=== PATIENT | female | born 1950 | race Caucasian/White ===

== ENCOUNTER → 2022-05-31 12:42 | Outpatient (CLI) | payer OTHER, SELFPAY ==
[2022-05-31 13:55] LABS: COVID19 -Nasal RAPID POSITIVE (Negative)
== END ==
PROVIDERS: PCP Nurse Practitioner; Referring Provider Orthopaedic Surgery; Visit Provider Orthopaedic Surgery
DX: U07.1 COVID-19 (principal); Z20.822 Contact with and (suspected) exposure to COVID-19
CPT/HCPCS: 87635; C9803

== ENCOUNTER → 2022-08-08 11:50 | Outpatient (CLI) | payer OTHER, SELFPAY ==
[2022-08-08 12:34] LABS: COVID19 -Nasal RAPID Negative (Negative)
== END ==
PROVIDERS: Referring Provider Orthopaedic Surgery; Visit Provider Orthopaedic Surgery
DX: Z20.822 Contact with and (suspected) exposure to COVID-19 (principal)
CPT/HCPCS: 87635; C9803

== ENCOUNTER 2022-08-10 07:28 | Day surgery (SDC) | payer OTHER, SELFPAY ==
[2022-08-05 12:13] VITALS: BMI 30.4
[2022-08-10] VITALS (13 sets, daily range): BP systolic 94–144; BP diastolic 54–92; PULSE 62–82; RESP 10–18; TEMP 35.7–36.8; O2SAT 90–100; BMI 30.9
--- NOTE | 2022-08-10 06:00 | DI.RAD.S_ITS ---
PROCEDURE: XR KNEE RT 1TO2V INDICATIONS: prosthesis placement TECHNIQUE: 2 view(s) of the knee acquired. COMPARISON: None. FINDINGS: Bones: Patient is status post knee joint arthroplasty. Hardware components are in expected positions. Visualized bony structures are intact. Soft tissues: Overlying postoperative changes are noted. IMPRESSION: Postsurgical changes from right knee arthroplasty. No definite unexpected findings. Dictated by: Santiago Fernandez M.D. on 08/10/2022 at 11:40 Approved by: Santiago Fernandez M.D. on 08/10/2022 at 11:42
[2022-08-10] MEDS: ACETAMINOPHEN 325 MG TABLET 975 MG PO (08:12)
[2022-08-10] MEDS: CELECOXIB 200 MG CAPSULE PO (08:14)
[2022-08-10] MEDS: PREGABALIN 75 MG CAPSULE PO (08:15)
[2022-08-10] MEDS: LACTATED RINGERS 1,000 ML 42 ML IV ×2 (08:18→10:08)
--- NOTE | 2022-08-10 08:20 | PM.PREOP ---
Pre-operative Note COVID-19 COVID-19 status: Negative Result date/Date tested (Pos, Neg/Pending): 08/08/22 Interval Note History & Physical reviewed/Exam performed by Physician: Yes Changes to H&P: No
[2022-08-10] MEDS: CEFAZOLIN 2 GM/100 ML PREMIX 100 ML IV ×2 (09:05→16:06)
[2022-08-10] MEDS: TRANEXAMIC ACID 1,000 MG VIAL 1000 MG INJ ×2 (09:15→10:25)
--- NOTE | 2022-08-10 10:02 | SUR.OPER ---
Supine on padded OR bed. Pillow under head, arms secured on padded armboards <90 degree abduction. Safety belt across torso. Non-operative leg secured with tape over blanket over lower leg. Operative leg secured in DeMayo positioner. Foam padded brace at thigh of operative leg.
[2022-08-10] MEDS: BUPIVACAINE LIPOSOME 266 MG/20 ML VIAL INJ (10:06)
[2022-08-10] MEDS: BUPIVACAINE 0.25% (PF) 60 ML, EPINEPHrine 0.3 MG INJ (10:06)
[2022-08-10] MEDS: MORPHINE 4 MG/ML INJ INJ (10:07)
--- NOTE | 2022-08-10 10:40 | P.OP_ITS ---
Operative Date/Time/Diagnoses Date of procedure: 08/10/22 Time of procedure: 10:40 Pre-op diagnosis: Right knee osteoarthritis Post-op diagnosis: same Procedure & Clinicians Procedure: Right total knee replacement Same procedure as scheduled: Yes Indications: The patient has had progressively worsening right knee pain with radiographic changes consistent with arthritis. Non-operative management has failed and the patient has requested total knee replacement. The risks, benefits and alternatives to surgery were discussed with the patient prior to proceeding. Risks discussed included, but were not limited to, failure to relieve pain, stiffness, infection, nerve damage, deep venous thrombosis, pulmonary embolism, stroke, coma, heart attack, permanent paralysis and , as well as the potential need for eventual revision of the prosthetic. Surgeon: Maikel Case Braze Operator: Rachel Douglass Click Yes if Unassisted: No Anesthesia Type: General, Spinal and Local Operative Notes Findings: Severe medial and moderate patellofemoral osteoarthritis. Closure Type: primary Specimen(s): none sent Prosthetic devices, grafts, tissues, transplants, or devices: Implants used in this procedure were manufactured by the [employer] and included the BCS II Journey total knee replacement with a size 4 right Oxinium femoral component, a size 4 right non porous tibial base plate, a 9 mm cross-linked polyethylene tibial insert and a 32 mm oval Elizabeth II yusuf la. Applied: implant(s) Estimated Blood Loss (mL): 25 Blood products transfused: none Tourniquet time (min): 47 Procedure in detail: The patient was seen in the pre-operative area, where the patient identified the right knee as the operative site and this was marked with my initials. The patient received pre-operative antibiotics, and was taken to the operating room and placed on the operative table in the supine position. After satisfactory anesthesia, a timekeeper supervisor out was performed. The right leg was encircled with a tourniquet about the proximal thigh, and the leg was prepared from the toes to the tourniquet with ChloroPrep in the usual fashion and draped through sterile drapes. The leg was elevated and exsanguinated with Eschmark bandage and the tourniquet inflated to 250 mmHg pressure. The knee was approached through an approximately 18 cm incision centered over the patella and carried into the knee through a medial parapatellar arthrotomy. The anterior osteophytes and soft tissues were removed. The rotational landmarks of [place]'s line and the transepicondylar axis were marked on the femur with electrocautery, and intramedullary guide holes for the femur and tibia were created. The distal femoral cut was made in 6 degrees of valgus using the intramedullary guide at the primary cut setting. The proximal tibial cut was then made using the intramedullary guide, taking 9 mm of bone off the less involved side. The extension gap was checked and the rotation of the femoral component confirmed with the gap balancing system. The anterior, posterior and chamfer cuts were then made. The posterior osteophytes and soft tissues were then removed. The posterior capsule was injected with part of a mixture of 60 ml 0.25% Marcaine mixed with 20 ml Exparel and 4 mg of morphine for post-operative pain control. The remainder of this mixture was injected into the capsule and subcutaneous tissues during cement curing. The tibia was prepared with the rotation set by an extra medullary guide. Trial tibial and femoral components were then placed and the intercondylar notch cut through the femoral trial. Range of motion was 0-140 degrees, with good stability throughout the range. The patella was then cut to accommodate the patellar prosthetic. There was no need for a lateral release. The trials were then removed, and the femoral hole plugged with a bone plug. The bone was prepared with pulsatile lavage, and dried with a sponge. Cement was applied and the final prosthetics placed. Excess cement was removed during and after cement curing. After confirming there was no extruded cement posteriorly, the final tibial insert was placed. The knee was copiously irrigated and the tourniquet deflated. Hemostasis was obtained. The capsule was closed with interrupted # 2 polyester suture. The subcutaneous layer was closed with 3-0 Vicryl, and the skin with a running 3-0 V-Lock suture and Dermabond. An Aquacel Ag dressing was applied and the patient was taken to recovery having tolerated the procedure well. The services of Ms. Douglass were necessary to provide exposure, positioning and retraction to protect vital structures during the total knee replacement. The procedure could not have been performed expediently and safely without the presence of a skilled hand frame surgical elastic knitter. Complications: none Post-operative Condition: stable Disposition: PACU Plan for aftercare: The patient will be maintained on a standard total knee replacement protocol with weight bearing as tolerated. The patient will receive aspirin and sequential compression devices for DVT prophylaxis. The patient will be discharged home when safe for the home environment.
--- NOTE | 2022-08-10 10:48 | SUR.PHASEI ---
Received to PACU after spinal/general anesthesia. Airway patent, self maintained. Report from LOIS Sandhu and Dr Cordero.
--- NOTE | 2022-08-10 11:18 | SUR.PHASEI ---
Required O2 for short period. O2 sats had dropped to 90%. Currently 94% on room air. Report called to LOIS Reis. Transferred to room 202 By LOIS Rodriguez and LOIS Felix with CPAP, belongings bag, earring to left ear.
--- NOTE | 2022-08-10 12:03 | PC.NURSE ---
Day shift: Pt on unit from PACU at approx 1130. She is A&Ox4. Denies any pain. CMS intact. SARAH and Aquacel CDI. Pt's Sister in room for support. Oriented to room and call light. VS and BP 100/60. Agrees to not get OOB w/o help from staff.
[2022-08-10] MEDS: LACTATED RINGERS 1,000 ML 100 ML IV (12:19)
[2022-08-10] MEDS: IBUPROFEN 400 MG TABLET PO ×3 (12:24→21:03)
[2022-08-10] MEDS: ACETAMINOPHEN 325 MG TABLET 650 MG PO ×2 (12:25→17:21)
[2022-08-10] MEDS: HYDROMORPHONE 2 MG TABLET PO ×3 (12:38→19:17)
[2022-08-10] MEDS: HYDROMORPHONE 0.5 MG INJ 0.2 MG IV (13:46)
--- NOTE | 2022-08-10 14:16 | CM.DANOTE ---
Patient is a 71 yo male who was admitted on 08/10/22 today for RTKA. Pt has [employer] ADV for insurance and his PCP is Dr. Deneen Chavez. EMR was reviewed. Per Vargas DELACRUZ, pt with RTKA that was postponed as pt contracted COVID but now admitted for planned surgery and was off the floor this morning in the OR. PT orders placed and pending. SW met briefly with pt bedside right after he arrived to the floor and explained role and pt confirms he lives in [facility] alone and is independent with ADL's at baseline and denies any hx of HH or SNF that he can remember. Pt states his plan is for sister to transport pt to her home in [place] at d/c and assist and he plans to initiate outpt PT in [place]. Pt does not anticipate any needs but aware that PT will need to assess to determine if pt safe for home with sister assist. Plan: SW to follow closely for PT eval and recommendations towards confirming safe plan of d/c to sister's house and any further identified needs. MARY Prajapati Discharge Planning/Care Management Advanced directive, confirm from FAMILY Start: 08/10/22 13:23 Freq: Q24H Status: Active Protocol: Document 08/10/22 13:26 YAD (Rec: 08/10/22 13:26 YAD [id number]) Advance Directive, confirm on record Time 13:26 Person contacted Pt Copy received No CM Discharge Assessment Start: 08/10/22 14:14 Freq: Status: Active Protocol: Document 08/10/22 14:14 BF (Rec: 08/10/22 14:16 BF [id number]) Discharge Planning Assessment Assigned Piano Builder MARY Crabtree DPOA/Assigned Designee Name sister Abi Advance Directives? Yes Advance Directives on File No History Provided By Patient,Family Member,Medical Record Has Patient been admitted in last 30 No days? Prior Living Arrangements Apartment/Condo Household Members none Type of transporation used prior to Drives own vehicle admit Independent with ADL's Yes Is patient alert and oriented? Yes Needs Assistance With Home Chores / Shopping Caregiver for Another No Community Services used prior to Physical Therapy admission: Patient/Family Preference Home with Home Health,OP PT Therapy Comment HH vs outpt pending PT eval and recommendations Barriers to Discharge No Discharge Plan Home with Home Health Transportation Arrangement sister is bedside and to transport if safe for home Additional Comment Pending PT eval and recommendations Review Status In Process Please Provide Date Initial DC 08/10/22 Assessment Was Performed Next Review Type Continued Stay Review Pre-Anesthesia Assessment Start: 05/19/22 09:34 Freq: Status: Active Protocol: Document 08/05/22 12:13 CAB (Rec: 05/19/22 10:31 CAB [id number]) Pre-Anesthesia Assessment Preferred Name Shaun Patient Information Reviewed Via Phone Assessment Assessment Completed With Patient Comment Outsdie labs/ECG scanned, COVID screen @ 08/08/22 Primary Care Provider Deneen Chavez Seen Specialist in Last 12 Months Yes Specialist Seen Orthopedist Primary Language Indonesian Ferryboat Pilot Required No Height 162.56 cm Weight 80.286 kg Body Mass Index (BMI) 30.4 Hearing Ability Normal Visual Assist Glasses Dentition Type Teeth, Natural Present Barriers to Learning None Other Aids Yes: CPAP Hx Anesthesia Reactions No Hx Family Anesthesia Reaction No Hx Malignant Hyperthermia No Hx Blood Transfusions No Anesthesia Review Requested No alcohol intake former Smoking Status Former smoker how long ago did patient quit smoking Quit age 49 Pain Present Pain Reported Musculoskeletal Symptoms Abnormal Gait,Difficulty Walking,Joint Pain,Neck Pain History of Falling (Recent or History of No ) Patient is completely paralyzed or No completely immobile Mental Status Oriented to own ability Is patient on oxygen? No Does patient have AGUERO/SOB No Hx Sleep Apnea Yes CPAP/BIPAP use prescribed and used routinely Will Bring CPAP/BIPAP DOS Yes Currently Taking a Beta Dinah No Hx Chest Pain No Hx SOB No Hx Syncope or Dizziness No Anti-Coagulant Therapy No Has a Recreational Leader No Cardiac Testing No Hx Pacemaker/ICD No Pacemaker Rep Required? No Cardiac Clearance Received Not Applicable Diet Type At Home Regular Dysphagia No Urinary Catheter Present No Hx Urinary Self Catheterization No Diabetes No Patient No Lactating No Hx Drug Resistant Organism No Presence of External or Internal Medical Yes: CPAP Devices Have you had any close contact with Yes: Pt had Covid 1st week of someone diagnosed with COVID-19? March Are you experiencing any of these No symptoms symptoms? Received a COVID vaccine? No Comment 2nd COVID infection 05/31/22 Marital Status Lives With none Current Living Arrangements Apartment/Condo Support System Sibling(s) Does the Patient Have Assistance After Yes: Pt will go to sister's [place] for care Patient Discharge Plan Description Other Comment Pt advised overnight length of stay per surgeon Feels Safe in Current Environment Yes Been Physically Hurt or Threatened By a No Person in Current Environment Do you have thoughts of harming yourself None or others? Are you currently considering suicide? No Do you have a plan to hurt yourself or No Plan others? Do You Have Any Spiritual Beliefs That No May Affect Your HC Choices? Do You Have Any Cultural Practices That No May Affect Your HC Choices? Comment Voodoo Who Can We Speak to About Patient's Care Family, friends Identifying Code for Release of Patient Declines to issue Information Health Care Proxy/Next of Kin Abi (sister) Health Care Proxy Emergency Contact Name Christen Osborn (friend) Emergency Contact Advance Directives? Yes Advance Directives on File No Requested Patient Bring Advanced Yes Directives DOS Power of Bariatric Physician Yes Power of Bariatric Physician Name Abi (sister) Power of Bariatric Physician PAC Instructions Bring CPAP/BIPAP,Do not shave/ clip surgical site,Durable medical equipment,Medications to take/avoid,Nasal antibiotic ,No ETOH/petroleum product on skin DOS,NPO,Post-op transportation,Sensory aids, Sturdy shoes/comfortable clothes,Do not bring valuables and remove jewelry
--- NOTE | 2022-08-10 17:00 | PT.IIE ---
Current Diagnoses Unilateral primary osteoarthritis, right knee (08/10/22) Surgery Performed Operation Date: 08/10/22 08:45 Actual Procedures p Total Knee Arthroplasty(Right) - Maikel Case MD Surgical History (Last Reviewed 08/10/22 @ 08:06 by Vinod Garcia, LOIS) Hx of foot surgery Hx of shoulder surgery Medical History (Last Updated 06/23/22 @ 13:55 by Peg Mustafa RN) Chronic neck pain COVID-19 virus infection (~03/2022) COVID-19 virus infection (05/31/22) Depression Elevated cholesterol Glaucoma Macular degeneration SHAUN (obstructive sleep apnea) Osteoarthritis Physical Therapy Inpatient Evaluation/Re-Eval M1 PT/OT-IP Prior Functional Status Start: 08/10/22 17:05 Freq: NEEDED Status: Active Protocol: Document 08/10/22 17:00 DLM (Rec: 08/10/22 17:19 DLM [id number]) Medical Review Prior Functional Status Medical History Reviewed Yes Diet/Fluid Consistency Regular Communication WFL, wears glasses Mobility and Gait Independent without device, her distances were limited before surgery due to her knee pain Activities of Daily Living and IADL's Independent, drives Social History Household Members none Living Arrangements Apartment/Condo Number of Floors (Floors) Two Floors Number of Stairs To Enter/Railing? 2 with rail Home Equipment Front Wheel Walker,Raised Toilet Seat Without Armrests Additional Social History Comment She will be staying at her Sister's house which is one story and has 1-2 steps to enter. She reports in the bathroom the toilet is close to a counter that she can use to assist her. M2 PT-IP Current Condition Start: 08/10/22 17:05 Freq: NEEDED Status: Active Protocol: Document 08/10/22 17:00 DLM (Rec: 08/10/22 17:19 DLM [id number]) Physical Therapy Current Condition Current Condition Evaluation Date 08/10/22 Treatment Diagnosis right TKA, impaired gait Onset Date 08/10/22 M3 PT-IP Subjective Start: 08/10/22 17:05 Freq: NEEDED Status: Active Protocol: Document 08/10/22 17:00 DLM (Rec: 08/10/22 17:19 DLM [id number]) Subjective Physical Therapy Visit Type Type Initial Evaluation Visit Start Time 16:20 Visit Stop Time 17:00 Total Visit Minutes 40 Number of TEXTILE FINISHER Visits 0 Physical Therapy Visit Comments Patient Comments she reports her knee is sore today Patient Goals Discharge home with her Sister to help Therapy Pain Assessment Pain When Pain Assessed After Treatment Pain Present Pain Present Pain Reported Location Right Knee Intensity 6 Scale Used Numeric (0 - 10) Description Aching,Tender,With Movement Pain Behaviors Wincing Pain Management Techniques Apply Cold,Elevation,Re- positioning,Timing of Activity with Medications M4 PT-IP Mobility and Gait Start: 08/10/22 17:05 Freq: NEEDED Status: Active Protocol: Document 08/10/22 17:00 DLM (Rec: 08/10/22 17:19 DLM [id number]) PT-Bed Mobility Assessment Supine to Sit Supine to Sit Standby Assistance Scooting Scooting to Edge of Bed Independent PT-Transfer Assessment Sit to and From Stand Sit to and from Stand Standby Assistance,Use of Upper Extremities Equipment Transfer Assistive Device Gait Belt,Front Wheeled Walker Transfers Transfer Destination Bed,Chair,Bedside Commode Transfer Technique Stand Step Pivot Transfer Ability Level of Assist Standby Assistance,Use of Upper Extremities Comments Mobility Comments Pt got up to the bedside commode to urinate. She stayed up in the recliner at the end of this visit for dinner. Her feet are elevated in the recliner and ice pack on right knee. Gait Assessment Gait Gait Assistance Required: Standby Assistance Distance (Feet) 25 Assistive Devices Assistive Device Gait Belt,Front Wheeled Walker Gait Deviations General Gait Pattern Antalgic Factors Limiting Gait Function Factors Limiting Gait Function Decreased Activity Tolerance, Decreased Strength,Limited Range of Motion,Pain,Poor Balance Comments Gait Comments Pt able to ambulate in the room with the FWW, good use of UE support on the FWW to manage right knee pain PT-Balance Assessment Sitting Balance and Reactions Static Sitting Balance Ability Normal Dynamic Sitting Balance Ability Normal Standing Balance and Reactions Static Standing Balance Ability Good Dynamic Standing Balance Ability Good Device Used FWW M5 PT-IP Objective Assessments Start: 08/10/22 17:05 Freq: NEEDED Status: Active Protocol: Document 08/10/22 17:00 DLM (Rec: 08/10/22 17:19 DLM [id number]) Orientation Orientation/Cognition Level of Alertness Alert Orientation Name,Age,Birthday,Month,Date, Year,Day of Week,Place, Situation Language Function Ability No Deficits Noted Safety Awareness Understands Safety Issues Memory Description No Deficits Noted Comments flat affect but she can joke and laugh Gross Range of Motion Upper Extremity ROM Assessment Within Functional Limits Lower Extremity ROM Assessment Right Impaired Impairments knee AROM 0-90 degrees post-op Strength Upper Extremity Strength Assessment Within Functional Limits Lower Extremity Strength Assessment Right Impaired Hip able to do SLR with pain Knee extension 3-/5 with pain Ankle DF 5/5 Comments Strength Comments right knee pain with all activity Coordination Assessment Gross Coordination Gross Coordination WNL Assessment Coordination Comments mild tremors today Sensation Assessment Sensation Gross Sensation WNL Muscle Tone Muscle Tone WNL Yes M6 PT-IP Treatment Start: 08/10/22 17:05 Freq: NEEDED Status: Active Protocol: Document 08/10/22 17:00 DLM (Rec: 08/10/22 17:19 DL [id number]) Physical Therapy Treatment Exercises Exercises Ankle Pumps,Quad Sets,Heel Slides,Straight Leg Raises, Short Arc Quads,Passive Knee Extension Hang,Seated Knee Flexion/Extension Education Education Provided Weight Bearing Status,Post-Op Packet,Safety Other Treatments Other Treatment Performed pt completed 5 reps of each exercise and reviewed written HEP with her M7 PT-IP Assessment and Plan Start: 08/10/22 17:05 Freq: NEEDED Status: Active Protocol: Document 08/10/22 17:00 DLM (Rec: 08/10/22 17:19 DLM [id number]) PT Summary Assessment and Plan Potential Rehabilitation Potential Excellent Status of Condition at Evaluation Evolving Summary Impairments Pain,ROM,Strength,Balance,Bed Mobility,Transfers,Gait, Activity Tolerance Assessment Summary Shaun is alert and resting in bed. She was able to get up to use the bedside commode and ambulate in the room with the FWW. Pt left sitting up in the recliner for dinner. She tolerated activity well but has more pain with activity and less at rest. Anticipate she will be ready to discharge home if she continues to progress well tomorrow. No nausea and no dizziness this visit. Will plan to see her for one more visit in the morning to advance her distance of gait and stair training. Pt plans to stay with her Sister at discharge. Goals Bed Mobility Goal Independent Transfer Goal Independent,Front Wheeled Walker Gait Goal Independent,Front Wheel Walker Gait Distance 150 feet Other Goals up/down 1-2 steps with FWW or cane and rail, SBA Days to Meet Goals 2 Frequency of Treatment Frequency Of Treatment Twice a Day Treatment Plan Physical Therapy Treatment Plan Bed Mobility Training,Transfer Training,Gait Training, Therapeutic Exercise,Balance Retraining,Post Op Education, Discharge Planning,Hot or Cold Pack,Neuromuscular Re-ed Other Recommendations and Next Treatment stair training before Focus discharge home Precautions Other Precautions fall risk post-op Weight Bearing Status Weight Bearing Status Weight Bear as Tolerated Recommendations To Nursing Amount of Assist Needed Standby Assistance Discharge Recommendations PT Discharge Recommendations Home with Assistance, Outpatient PT Other Discharge Recommendations she plans to stay with her Sister at discharge, she has physical therapy set up Transportation Needs at Discharge Private Vehicle
[2022-08-10] MEDS: DOCUSATE 100 MG CAPSULE PO (21:03)
[2022-08-10] MEDS: ASPIRIN EC 81 MG TABLET PO (21:03)
[2022-08-10] MEDS: QUETIAPINE 100 MG TABLET 400 MG PO (21:04)
[2022-08-10] MEDS: TEMAZEPAM 15 MG CAPSULE PO (21:05)
[2022-08-11] MEDS: HYDROMORPHONE 2 MG TABLET PO ×3 (01:19→11:53)
[2022-08-11] MEDS: ACETAMINOPHEN 325 MG TABLET 650 MG PO ×3 (01:19→11:54)
[2022-08-11] MEDS: CEFAZOLIN 2 GM/100 ML PREMIX 100 ML IV (01:22)
[2022-08-11] MEDS: IBUPROFEN 400 MG TABLET PO ×4 (01:22→11:54)
[2022-08-11 04:45] VITALS: BP 110/61; PULSE 59; RESP 18; TEMP 36.1; O2SAT 93
[2022-08-11 06:37] LABS: Hematocrit 35.2 % (36-46); Hemoglobin 11.4 g/dL (12.0-16.0)
--- NOTE | 2022-08-11 08:07 | P.DS_ITS ---
History of Present Illness History of Present Illness Date Patient Seen: 08/11/22 Time Patient Seen: 08:08 Chief complaint: Right TKA *OPB* Narrative: The history and physical is contained in the chart previously completed note. Please refer to that note for this information. Discharge Providers Provider Date of admission: August 10, 2022 Discharge Date: 08/11/22 Primary care physician: Deneen Chavez MD Consults: 08/10/22 11:23 Consult to Discharge Planning Routine Comment: Consult to Physical Therapy Evaluate & Treat Comment: Physician Instructions: postop TKA protocol Discharge provider: Maikel Caes MD Summary Hospital Course Discharge Diagnosis: 1. Right knee osteoarthritis 2. Post hemorrhagic anemia Hospital Course: The patient was admitted to the hospital and taken directly to the operating r oom on August 10, 2022 where she underwent a right total knee replacement without complications. On postoperative day 1 she complained of pain control issues since 1st waking up however the pain has been brought under control. She has a mild post hemorrhagic anemia which we anticipate will improve with dietary measures. Status at Discharge Cognitive/behavioral status at discharge: at baseline, oriented Functional status at discharge: uses cane/walker Overall status at discharge: patient is progressing back to baseline Time Spent with Patient Time spent: Less than 30 minutes Exam Vital Signs (past 8 hours): - 08/11/22 04:45 Temperature 97.0 F L Pulse Rate 59 L Respiratory Rate 18 Blood Pressure 110/61 Pulse Oximetry 93 Oxygen Flow Rate 0 Oxygen Delivery Method Room Air Oxygen Flow Rate 0 Narrative Exam Narrative: Right knee wound is dressed with no drainage on the bandage. Calf is soft. Light touch and motion are intact in the right lower extremity. Objective Labs Result Diagrams: 08/11/22 06:23 Labs: Laboratory Results - last 24 hr 08/11/22 06:23 Hgb 11.4 L Hct 35.2 L PFSH Medical History (Updated 06/23/22 @ 13:55 by Peg Mustafa RN) Chronic neck pain COVID-19 virus infection (~03/2022) COVID-19 virus infection (05/31/22) Depression Elevated cholesterol Glaucoma Macular degeneration SHAUN (obstructive sleep apnea) Osteoarthritis Surgical History Hx of foot surgery Hx of shoulder surgery Social History household members: none Smoking Status: Former smoker alcohol intake: former Discharge Assessment & Plan Assessment and Plan Assessment: Stable postoperative day 1 status post right total knee replacement with mild post hemorrhagic anemia. Plan of Treatment: We will mobilize her with physical therapy this morning. At the time of this dictation it is anticipated she will be able to go home later this morning. She will be going to live with her sister for additional assistance. Prescription for pain relievers been called into her pharmacy. She is been instructed in the use of anti-inflammatories and Tylenol for additional pain relief in the use of low-dose aspirin for DVT prophylaxis. Follow-up will be in my office in 10-14 days. Discharge Plan Discharge Plan Patient Disposition: Home Discharge orders & Medications Discharge Orders: Discharge (Order); Ordered 08/11/22 Ordered By: Maikel Case Prescriptions: New acetaminophen 325 mg Tablet 650 mg PO Q6HR Qty: 250 0RF aspirin 81 mg Tablet,Delayed Release (Dr/Ec) 81 mg PO BID Qty: 84 0RF ibuprofen 400 mg Tablet 400 mg PO Q4HR Qty: 250 0RF oxycodone 5 mg Tablet 5 mg PO Q4H PRN (Reason: Pain, Moderate (4-6)) Qty: 40 0RF Continued clonazepam 0.5 mg Tablet 0.5 mg PO DAILY temazepam 15 mg Capsule 15 mg PO BEDTIME quetiapine 400 mg Tablet Extended Release 24 Hr 400 mg PO BEDTIME desvenlafaxine succinate [Pristiq] 50 mg Tablet Extended Release 24 Hr 75 mg PO DAILY Follow up/Referrals: Maikel Case MD [Physician] - As previously scheduled Deneen Chavez MD [Primary Care Provider] - Diet/Activity/Treatments Diet: Diet as Tolerated and Regular Activity: You may bear weight as tolerated on your right knee. Cold/Heat Therapy: You may apply ice to the right knee for 15 minutes every hour as needed for pain control. Skin/Wound/Dressing Care Report to your healthcare provider any signs of infection, such as:: chills, fever, night sweats, increased pain, unusual drainage and unusual redness Dressing: You may remove the Amol wrap 3 days after surgery and shower normally with the deeper dressing in place. Leave the deeper dressing in place until your postoperative follow-up. If the central strip of the dressing becomes saturated with either water or blood, please call the office to have it eval uated. Visit Report/Discharge Packet Instructions: DI for Knee Replacement Stand Alone Forms: Surgery Discharge Discharge Data Primary Care Provider: Deneen Chavez Attending Provider: Maikel Case
[2022-08-11 08:18] VITALS: BP 130/75; PULSE 79; RESP 18; TEMP 37.1; O2SAT 97
[2022-08-11] MEDS: DESVENLAFAXINE SUCCINATE 50 MG 75 EACH PO (08:45)
[2022-08-11] MEDS: clonazePAM 0.5 MG TABLET PO (08:47)
[2022-08-11] MEDS: DOCUSATE 100 MG CAPSULE PO (08:47)
[2022-08-11] MEDS: ASPIRIN EC 81 MG TABLET PO (08:47)
--- NOTE | 2022-08-11 10:01 | PT.IPTN ---
Current Diagnoses Unilateral primary osteoarthritis, right knee (08/10/22) Surgery Performed Operation Date: 08/10/22 08:45 Actual Procedures p Total Knee Arthroplasty(Right) - Maikel Case MD Physical Therapy Treatment Note M2 PT-IP Current Condition Start: 08/10/22 17:05 Freq: NEEDED Status: Active Protocol: Document 08/10/22 17:00 DLM (Rec: 08/10/22 17:19 DLM [id number]) Physical Therapy Current Condition Current Condition Evaluation Date 08/10/22 Treatment Diagnosis right TKA, impaired gait Onset Date 08/10/22 M3 PT-IP Subjective Start: 08/10/22 17:05 Freq: NEEDED Status: Active Protocol: Document 08/11/22 10:01 DLM (Rec: 08/11/22 10:22 DLM [id number]) Subjective Physical Therapy Visit Type Type Treatment Note Visit Start Time 09:35 Visit Stop Time 10:01 Total Visit Minutes 26 Number of TRUMPET TEACHER Visits 0 Physical Therapy Visit Comments Patient Comments She feels she is safe to go home today Patient Goals Discharge home with her Sister to help Therapy Pain Assessment Pain When Pain Assessed After Treatment Pain Present Pain Present Pain Reported Location Right Knee Intensity 5 Scale Used Numeric (0 - 10) Description Aching,Tender,With Movement Pain Management Techniques Apply Cold,Elevation,Re- positioning,Timing of Activity with Medications M4 PT-IP Mobility and Gait Start: 08/10/22 17:05 Freq: NEEDED Status: Active Protocol: Document 08/11/22 10:01 DLM (Rec: 08/11/22 10:22 DLM [id number]) PT-Bed Mobility Assessment Supine to Sit Supine to Sit Independent Sit to Supine Sit to Supine Independent Scooting Scooting to Edge of Bed Independent PT-Transfer Assessment Sit to and From Stand Sit to and from Stand Independent,Use of Upper Extremities Equipment Transfer Assistive Device Gait Belt,Front Wheeled Walker Transfers Transfer Destination Bed,Chair,Bedside Commode Transfer Technique Stand Step Pivot Transfer Ability Level of Assist Independent,Use of Upper Extremities Comments Mobility Comments Pt up to toilet to urinate. She stayed up in the recliner at the end of this visit with feet elevated and ice on right knee Gait Assessment Gait Gait Assistance Required: Independent Distance (Feet) 200 Able to Maintain Weight Bearing Status Yes During Gait Assistive Devices Assistive Device Gait Belt,Front Wheeled Walker Gait Deviations General Gait Pattern Antalgic Factors Limiting Gait Function Factors Limiting Gait Function Decreased Activity Tolerance, Decreased Strength,Limited Range of Motion,Pain,Poor Balance Comments Gait Comments pt able to ambulate with the FWW to the stairs and back, good use of the FWW. Verbal cues provided to normalize right knee bend during swing phase of gait as able. Stair Climbing Assessment Evaluation Level of Assist On Stairs Standby Assistance Devices Stair Climbing Assistive Devices Front Wheel Walker Technique/Endurance Stair Climbing Direction Ascend and Descend Stair Climbing Technique Step to Step Number of Steps Climbed 1 Stair Climbing Set # Repetitions (reps) 2 Comments Stair Climbing Comments safe technique on stair with training on sequence PT-Balance Assessment Sitting Balance and Reactions Static Sitting Balance Ability Normal Dynamic Sitting Balance Ability Normal Standing Balance and Reactions Static Standing Balance Ability Good Dynamic Standing Balance Ability Good Device Used FWW M5 PT-IP Objective Assessments Start: 08/10/22 17:05 Freq: NEEDED Status: Active Protocol: Document 08/10/22 17:00 DL (Rec: 08/10/22 17:19 REPLACED BY [facility] [id number]) Orientation Orientation/Cognition Level of Alertness Alert Orientation Name,Age,Birthday,Month,Date, Year,Day of Week,Place, Situation Language Function Ability No Deficits Noted Safety Awareness Understands Safety Issues Memory Description No Deficits Noted Comments flat affect but she can joke and laugh Gross Range of Motion Upper Extremity ROM Assessment Within Functional Limits Lower Extremity ROM Assessment Right Impaired Impairments knee AROM 0-90 degrees post-op Strength Upper Extremity Strength Assessment Within Functional Limits Lower Extremity Strength Assessment Right Impaired Hip able to do SLR with pain Knee extension 3-/5 with pain Ankle DF 5/5 Comments Strength Comments right knee pain with all activity Coordination Assessment Gross Coordination Gross Coordination WNL Assessment Coordination Comments mild tremors today Sensation Assessment Sensation Gross Sensation WNL Muscle Tone Muscle Tone WNL Yes M6 PT-IP Treatment Start: 08/10/22 17:05 Freq: NEEDED Status: Active Protocol: Document 08/11/22 10:01 DLM (Rec: 08/11/22 10:22 REPLACED BY [facility] [id number]) Physical Therapy Treatment Exercises Exercises Ankle Pumps,Quad Sets,Heel Slides,Straight Leg Raises, Short Arc Quads,Passive Knee Extension Hang,Seated Knee Flexion/Extension Knee ROM Measurement 5-90 Education Education Provided Weight Bearing Status,Post-Op Packet,Safety M7 PT-IP Assessment and Plan Start: 08/10/22 17:05 Freq: NEEDED Status: Active Protocol: Document 08/11/22 10:01 KIERSTEN (Rec: 08/11/22 10:22 DL [id number]) PT Summary Assessment and Plan Summary Impairments Pain,ROM,Strength,Balance,Bed Mobility,Transfers,Gait, Activity Tolerance Progress Towards Goals Safe For Discharge Assessment Summary Shaun is progressing well today. She was able to ambulate in the m[place]all[place] with the fWW and go up and down stairs. She appears safe to discharge home with her Sister for support today. Her Sister is not present for therapy session. Pt feels her pain is well controlled at this time to tolerate activity. Notified her nurse that she was cleared for home by physical therapy. Goals met today. Goals Bed Mobility Goal Independent Transfer Goal Independent,Front Wheeled Walker Gait Goal Independent,Front Wheel Walker Gait Distance 150 feet Other Goals up/down 1-2 steps with FWW or cane and rail, SBA Days to Meet Goals 2 Frequency of Treatment Frequency Of Treatment Discharge Treatment Plan Physical Therapy Treatment Plan Bed Mobility Training,Transfer Training,Gait Training, Therapeutic Exercise,Balance Retraining,Post Op Education, Discharge Planning,Hot or Cold Pack,Neuromuscular Re-ed Precautions Other Precautions fall risk post-op Weight Bearing Status Weight Bearing Status Weight Bear as Tolerated Recommendations To Nursing Amount of Assist Needed Standby Assistance Discharge Recommendations PT Discharge Recommendations Home with Assistance, Outpatient PT Other Discharge Recommendations Plans to stay with her Sister in [place] Transportation Needs at Discharge Private Vehicle
--- NOTE | 2022-08-11 12:30 | PC.NURSE ---
Day shift: Pt off unit at approx 1220. Paperwork signed and all questions answered. Dressing remains CDI. VS WNL and RA 98%. Encouraged to use I.S. as directed. Pt has all personal belongings. Pt's Sister is driving her to [employer] in [place]. Taken to this car via WC by RAMSES Ramirez.
== END 2022-08-11 12:32 | disposition home or self-care (01) ==
LOC: OR 07:30 → AC 07:30
PROVIDERS: PCP Internal Medicine Geriatric Medicine; Referring Provider Internal Medicine Geriatric Medicine; Visit Provider Orthopaedic Surgery
PROC: 0SRC0JZ Replacement of Right Knee Joint with Synthetic Substitute, Open Approach (ICD-10-PCS; CPT 27447; principal; 2022-08-10 08:45)
DX: M17.11 Unilateral primary osteoarthritis, right knee (principal)
CPT/HCPCS: 27447; 36415; 73560; 85014; 85018; 97110; 97116; 97162; C1776; C1713; C9290; J0171; J0690; J1100; J1170; J2250; J2270; J2405; J2704; J3010